=== PATIENT | male | born 1960 | race Two or more races ===

== ENCOUNTER 2016-11-15 16:51 | Emergency (ER) | payer MEDICAID ==
[~2016-11-15 16:51] MED LIST: ACETAMINOPHEN1 EAC4 PO; ACETAZOLAMIDE250 M1 PO; BACTRIM DS TAB1 EAC2 PO; CLARITIN10 M6 PO; COL-RITE100 M2 PO; DIABETES MEDICATION; DOXYCYCLINE HY100 M5 PO; FLUDROCORTISON0.1 M1 PO; FORTAMET500 MG PO; GABAPENTIN100 M1 PO; GLIPIZIDE XL10 M1 PO; HUMALOG MI100 UNIT/5 SC; HUMALOG MI100 UNIT/5 SQ; HYPERTENSION MED; K-TAB ER10 MEQ PO; LASIX40 M1 PO; LEVEMIR100 UNITS/ SC; LISINOPRIL10 M1 PO; LOVENOX30 MG/0.1 SC; MIDODRINE HCL5 M1 PO; MIRALAX17 G2 PO; MITIGARE0.6 MG PO; MULTIVITAMINS1 EAC6 PO; NORCO 5-325 TA1 EACH PO; NORVASC5 M2 PO; NOVOLOG FL100 UNIT/2 SC; NOVOLOG FL100 UNIT/2 SQ; PLETAL100 M2 PO; POTASSIUM CHLO10 ME2 PO; PREDNISONE2.5 M1 PO; PREDNISONE5 M1 PO; RESTORIL15 M1 PO; SULFAMYLON SOL250 M1 EXT; SWEEN 24255 GM TP; TIMOPTIC10 ML EACH EYE; TRUSOPT10 ML EACH EYE; TYLENOL325 M2 PO; ZANTAC150 M1 PO; ZOCOR20 M1 PO; ZOLOFT50 M1 PO
[2016-11-15] MEDS ORDERED: SIMETHICONE80 M3 PO (18:57)
[2016-11-15] MEDS ORDERED: LIPITOR40 M1 PO (18:58)
[2016-11-15] MEDS ORDERED: ACID CONTROL150 M2 PO (18:58)
[2016-11-15] MEDS ORDERED: LORATADINE10 M2 PO (18:58)
[2016-11-15] MEDS ORDERED: SIMBRINZA 1%-0.28 ML OP (19:23)
[2016-11-15] MEDS ORDERED: TRAVATAN Z5 M1 RIGHT EYE (19:24)
[2016-11-15] MEDS ORDERED: POLYTRIM EYE DR10 M1 OP (19:25)
[2016-11-15] MEDS ORDERED: LANTUS100 UNITS/ SC (19:27)
[2016-11-15] MEDS ORDERED: ZANTAC150 M1 PO (19:27)
[2016-11-15] MEDS ORDERED: LASIX20 M1 PO ×2 (19:28→21:36)
[2016-11-15 20:33] LABS: BASO % 0.5 % (0-2); EOS % 3.6 % (0-7); EOSINOPHIL ABSOLUTE COUNT 0.2 tho/cmm (0.0-0.7); HCT-HEMATOCRIT 27.9 % (36.0-53.5); HGB-HEMOGLOBIN 9.4 gm/dl (13.5-17.0); IMMATURE GRANULOCYTES ABSOLUTE 0.01 tho/cmm (0-0.03); IMMATURE GRANULOCYTES PERCENT 0.2 % (0-0.3); LYMPH % 33.7 % (20-45); MCH (MEAN CORPUSCULAR HGB) 28.4 pg (28.0-32.0); MCHC MEAN CORPUSCULAR HGB CONC 33.7 % (32.0-36.0); MCV (MEAN CELL VOLUME) 84.3 fl (82.0-96.0); MEAN PLATELET VOLUME 9.4 cmc (9.4-12.4); MONO % 6.1 % (0-12); MONOCYTE ABSOLUTE COUNT 0.4 tho/cmm (0.0-1.2); NEUTROPHIL ABSOLUTE COUNT 3.3 tho/cmm (1.6-8.0); NEUTROPHIL-AUTOMATED 3.3 tho/cmm (1.6-8.0); NEUTROPHILS % 55.9 % (40-80); PLATELET COUNT 192 tho/cmm (150-450); RED BLOOD COUNT 3.31 mil/cmm (4.40-5.70); RED CELL DISTRIBUTION WIDTH 15.1 % (12.4-16.4); WHITE BLOOD COUNT 5.9 tho/cmm (4.0-10.0)
[2016-11-15 20:41] LABS: ANION GAP 14 mmol/L (0-20); BLOOD UREA NITROGEN 33 mg/dl (6-24); CALCIUM 8.1 mg/dl (8.5-10.5); CARBON DIOXIDE-VENOUS 22 mmol/L (22-32); CHLORIDE 114 mmol/l (96-110); CREATININE 2.66 mg/dl (0.60-1.30); GLUCOSE 107 mg/dL (70-110); POTASSIUM 4.2 mmol/L (3.7-5.1); SODIUM 146 mmol/L (135-145); eGFR VALUE FOR BLACK 30 mL/Min
[2017-02-28] MEDS ORDERED: LISINOPRIL5 M1 PO (19:20)
[2017-02-28] MEDS ORDERED: HYDRALAZINE HCL10 M1 PO (19:20)
[2017-02-28] MEDS ORDERED: ASPIR 8181 M1 PO (19:20)
[2017-03-05] MEDS ORDERED: XALATAN2.5 M1 EACH EYE (09:38)
[2017-03-05] MEDS ORDERED: ALPHAGAN P5 ML EACH EYE (09:39)
[2017-03-05] MEDS ORDERED: TERAZOSIN HCL1 M1 PO (15:12)
[2017-03-09] MEDS ORDERED: NORCO 5-325 TA1 EACH PO (14:00)
[2017-03-09] MEDS ORDERED: TYLENOL325 M2 PO (14:01)
[2017-03-09] MEDS ORDERED: NORVASC5 M2 PO (14:06)
[2017-03-09] MEDS ORDERED: COZAAR100 M1 PO (14:07)
[2017-03-09] MEDS ORDERED: FLOMAX0.4 M1 PO (14:08)
[2017-03-09] MEDS ORDERED: LASIX40 M1 PO (14:08)
[2017-03-09] MEDS ORDERED: STOP HOME MEDICATION (14:10)
[2017-03-10] MEDS ORDERED: COREG6.25 M1 PO (16:52)
[2017-03-14] MEDS ORDERED: TERAZOSIN HCL1 M1 PO (13:24)
[2017-03-14] MEDS ORDERED: KEFLEX250 M2 PO ×2 (16:28→16:31)
== END 2016-11-15 21:57 ==
LOC: EDMED 16:51
PROVIDERS: Nurse Practitioner Family
DX: D64.9 Anemia, unspecified (principal); R22.43 Localized swelling, mass and lump, lower limb, bilateral; I12.9 Hypertensive chronic kidney disease with stage 1 through stage 4 chronic kidney disease, or unspecified chronic kidney disease; E11.22 Type 2 diabetes mellitus with diabetic chronic kidney disease; N18.9 Chronic kidney disease, unspecified; Z79.4 Long term (current) use of insulin; Z98.890 Other specified postprocedural states